=== PATIENT | female | born 1965 | race African-American/Black ===

== ENCOUNTER 2025-08-13 11:04 | Emergency (ER) | payer OTHER, SELFPAY ==
[2025-08-13 11:55] LABS: CAUTI Indications for Culture Pelvic or flank pain; Glucose, Urine (Dipstick) Normal (Negative); Leukocyte 500 Leu/uL (Negative); Protein, Urine (Dipstick) Negative (Neg-Trace); Specific Gravity, Urine 1.024 (1.002-1.036)
[2025-08-13 11:56] LABS: Bacteria/HPF 1+ HPF (None Seen)
[2025-08-13 11:57] LABS: Urine Culture Reflex No No
== END 2025-08-13 14:10 | disposition home or self-care (01) ==
LOC: ERS 11:04
DX: M54.50 Low back pain, unspecified (principal); I10 Essential (primary) hypertension; F17.210 Nicotine dependence, cigarettes, uncomplicated; Z79.899 Other long term (current) drug therapy
CPT/HCPCS: 72100; 81001; 87086; 99283